=== PATIENT | male | born 1980 | race Caucasian/White ===

== ENCOUNTER 2018-01-26 07:43 | Day surgery (SDC) | payer OTHER ==
[~2018-01-26] VITALS: Ht 188 cm; Wt 81.5 kg
== END 2018-01-26 11:10 | disposition home or self-care (01) ==
LOC: ORSCSDS 07:43
PROVIDERS: Podiatrist Foot & Ankle Surgery
PROC: 0YBN0ZZ Excision of Left Foot, Open Approach (ICD-10-PCS; principal; 2018-01-26 09:30)
DX: S92.812A Other fracture of left foot, initial encounter for closed fracture (principal); M79.5 Residual foreign body in soft tissue
CPT/HCPCS: J0171; J0690; J2250; J7120

== ENCOUNTER 2023-11-10 10:12 | Day surgery (SDC) | payer OTHER ==
[~2023-11-10] VITALS: Ht 188 cm; Wt 82.0 kg
[2023-11-10] MEDS ORDERED: Vitamin D1000 UNI1 (10:52)
--- NOTE | 2023-11-10 11:36 | NUR ---
11/10/23 1136 Paige Patton T/O PERFORMED FOR POPLITEAL BLOCK BY DR. SILVERIO. ALL CONSENTS SIGNED.
[2023-11-10 14:00] VITALS: BP 115/71
--- NOTE | 2023-11-10 14:56 | NUR ---
11/10/23 1456 Ramy Osuna IV REMOVED INTACT. SITE WNL.
== END 2023-11-10 15:00 | disposition home or self-care (01) ==
LOC: ORSCSDS 10:12
PROVIDERS: Podiatrist Foot & Ankle Surgery
PROC: 0QBL0ZZ Excision of Right Tarsal, Open Approach (ICD-10-PCS; principal; 2023-11-10 11:45)
DX: M85.471 Solitary bone cyst, right ankle and foot (principal)
CPT/HCPCS: 88108; 88307; C1713; J0171; J0690; J1100; J2250; J2405; J2704; J2795; J3010; J7120